=== PATIENT | female | born 1975 | race Caucasian/White ===

== ENCOUNTER 2019-12-05 07:09 | Day surgery (SDC) | payer OTHER, SELFPAY ==
[2019-12-05] VITALS (7 sets, daily range): BP systolic 90–106; BP diastolic 55–67; PULSE 59–71; RESP 16–18; TEMP 36.2–37.1; O2SAT 93–100; BMI 23.1
[2019-12-05 07:52] LABS: Internal QC Validated? YES +Cl - CLEAR BKGD; Pregnancy, Urine Negative Negative
[2019-12-05] MEDS: Lactated Ringers 1,000 ML 100 ML IV (07:52)
[2019-12-05] MEDS: Cefazolin 2 GM in 0.9% Normal Saline 100 ML IV (09:04)
[2019-12-05] MEDS: Epinephrine (1 mg/ml) 1 MG/ML VIAL (09:32)
[2019-12-05] MEDS: Bupiv/Epi 0.5% Mpf 30 ML Vial (09:32)
[2019-12-05] MEDS: HYDROcodone Bitartrate/Apap 5/325 Tablet PO (12:18)
--- NOTE | 2019-12-05 14:34 | PCM.OPRPT ---
Report of Operation Date of Procedure: 12/05/19 Pre-Operative Diagnosis: left knee ACL and medial meniscus tears Post-Operative Diagnosis: same Surgery/Procedure Performed:: Left ACL reconstruction and partial medial meniscectomy court recording monitor: Brennan Jackson Type of Anesthesia:: General/Regional Anesthesiologist: Monico Wagner Grafts/Implants Used: 705 mm tibialis anterior allograft - Admit VTE Documentation VTE Present on Admission: No VTE Mechan Device Prophylaxis: SCD's, Thigh High KAILYN Hose VTE Pharm Prophylaxis ordered?: Yes
== END 2019-12-05 13:39 | disposition home or self-care (01) ==
LOC: SDC 07:19 → AC 07:19
PROVIDERS: Anesthesiology; PCP Family Medicine; Referring Provider Orthopaedic Surgery; Visit Provider Orthopaedic Surgery
PROC: (CPT 29888; principal; 2019-12-05 08:45)
DX: S83.512A Sprain of anterior cruciate ligament of left knee, initial encounter (principal); S83.242A Other tear of medial meniscus, current injury, left knee, initial encounter; X58.XXXA Exposure to other specified factors, initial encounter; Y93.68 Activity, volleyball (beach) (court); Y92.9 Unspecified place or not applicable
CPT/HCPCS: 01400; 29881; 29888; 64447; 81025; J7120; J2405